=== PATIENT | female | born 1950 | race Caucasian/White ===

== ENCOUNTER 2016-06-24 08:00 | Outpatient (CLI) | payer MEDICARE, OTHER ==
[2015-04-23 06:06] VITALS: BMI 26.6
[~2016-06-24 08:00] MED LIST: COUMADIN3 MG PO; KEFLEX250 MG PO; KEFLEX500 MG PO; MULTI-DAY VITAM1 TAB PO; NORCO 10/325 TA1 TA1 PO; OXYBUTYNIN CHLOR5 MG PO; OXYCONTIN20 MG PO; PERCOCET 10/3251 TA1 PO
== END 2016-06-24 23:59 | disposition home or self-care (01) ==
LOC: D.MRI 08:00
DX: M47.816 Spondylosis without myelopathy or radiculopathy, lumbar region (principal); M54.2 Cervicalgia

== ENCOUNTER 2016-09-06 05:33 | Inpatient (IN) | payer MEDICARE, OTHER ==
[2016-09-04 14:11] LABS: BASOPHILS 0.3 % (0-2); EOSINOPHILS 0.9 % (0-7); HEMATOCRIT 39.3 % (36.0-48.0); HEMOGLOBIN 12.8 g/dL (12-16); IMMATURE GRANULOCYTES 0.2 % (0-5); LYMPHOCYTES 24.9 % (15-50); MCH 30.1 pg (26.0-34.0); MCHC 32.6 g/dL (31.0-37.0); MCV 92.5 fL (80.0-100.0); MEAN PLATELET VOLUME 10.1 fL (7.4-10.4); MONOCYTES 6.5 % (2-11); NEUTROPHILS 67.2 % (40-80); RBC 4.25 10x6/uL (4.00-5.40); RDW 13.6 % (11.5-14.5); WBC 6.6 10x3/uL (4.8-10.8)
[2016-09-04 14:12] LABS: PLATELET COUNT 225 10x3/uL (130-400)
[2016-09-04 14:27] LABS: APPEARANCE HAZY (CLEAR); BILIRUBIN NEGATIVE (NEGATIVE); CALC OSMOLALITY 277 mosm/kg (275-300); CALCIUM 8.9 mg/dL (8.5-10.1); CARBON DIOXIDE 29.1 mmol/L (21.0-32.0); CHLORIDE - SERUM 103 mmol/L (98-107); COLOR YELLOW (YELLOW); CREATININE - SERUM 0.7 mg/dL (0.6-1.3); GLUCOSE 95 mg/dL (74-106); GLUCOSE NEGATIVE (NEGATIVE); KETONE NEGATIVE (NEGATIVE); LEUKOCYTE ESTERASE 1+ (NEGATIVE); NITRITE NEGATIVE (NEGATIVE); POTASSIUM - SERUM 3.7 mmol/L (3.5-5.1); PROTEIN NEGATIVE (NEGATIVE); SODIUM 139 mmol/L (136-145); UREA NITROGEN 12 mg/dL (7-18); UROBILINOGEN NORMAL (NORMAL); eGFR NON AFRICAN AMERICAN 89 mL/min (90-120)
[2016-09-04 14:28] LABS: AMORPHOUS SEDIMENT >1+ /lpf (NONE SEEN); BACTERIA MODERATE /hpf (NONE SEEN); EPITHELIAL CELLS 0-5 /hpf (0-5); MUCUS <1+ /lpf (NONE SEEN); RED CELLS - URINE 0-5 /hpf (0-5)
[2016-09-06] VITALS (15 sets, daily range): BP systolic 126–156; BP diastolic 66–88; Ht 157.5 cm; Wt 69.1 kg
[~2016-09-06] VITALS: Ht 157.5 cm; Wt 69.1 kg
[2016-09-06] MEDS ORDERED: HYDROCODON-ACET15 ML PO (06:28)
[2016-09-06] MEDS ORDERED: ADIPEX-P37.5 MG PO (06:31)
--- NOTE | 2016-09-06 10:28 | HP ---
PATIENT: HITESH MARTINEZ MEDICAL RECORD: [id number] ACCOUNT: [id number] LOCATION:[facility] [place]- : 50 ADMISSION DATE: 09/06/16 HISTORY AND PHYSICAL EXAMINATION CHIEF COMPLAINT: Neck pain secondary to C5-6, C6-7 neural foraminal narrowing. HISTORY OF PRESENT ILLNESS: This is a pleasant white female who presented to our office with neck pain and she also complains of bilateral shoulder pain, it is worse in her left upper extremity. She describes the pain as sharp. It has progressively gotten worse and with modification of activity, it has not helped and she is taking meds. She also has low back pain, but neck pain is taking precedence today. PAST MEDICAL HISTORY: Significant for the above, total knee replacement times 2, and left and right shoulder scopes with an existing left shoulder disorder now. FAMILY HISTORY: Unknown. SOCIAL HISTORY: She is . FAMILY DOCTORS: Juanita Gregorio and Acosta Butler MD. ALLERGIES: PENICILLIN. CURRENT MEDICATIONS: Cephalexin, and oxycodone. PHYSICAL EXAMINATION: GENERAL: This is an alert, oriented female who is in no acute distress. HEENT: Normocephalic. Pupils are equal, reactive to light. CHEST: Clear bilaterally to auscultation. HEART: S1 and S2. ABDOMEN: Soft, bowel sounds present. EXTREMITIES: She has decreased range of motion of her left shoulder. With neck, she has pain with flexion and extension and rotation. IMPRESSION: C5-6, C6-7 neural foraminal narrowing. PLAN: C5 through C7 ACDF. The risk and benefits of surgery have been explained to her in detail. Risks include bleeding, failure to relieve symptoms, problems with anesthesia and . Time was allowed for questions and questions were answered. The patient wishes to proceed with surgery. TRANSINT:[id number] Voice Confirmation ID: [id number] DOCUMENT ID: [id number] Dictated By: CAITLYN ROBERTS I have interviewed/examined the above patient and agree with these documented findings. HISTORY AND PHYSICAL [id number] HITESH MARTINEZ MARTINA OWENS MD at 1028 CC: [id number] DICTATION DATE: 09/05/16 1250 IT HELP DESK TECHNICIAN: 09/05/16 1500 ADM IN [address] [place] [address]
--- NOTE | 2016-09-06 11:20 | NUR ---
REC'D PT FROM OR VIA BED, PT ORIENTATED X2. NECK INCISON OPEN TO AIR, CHARMAINE DRAIN WITH BLOODY DRAINAIGE COMPRESSED. LEFT HAND PIV WITH LR INFUSING AT 10ML/HR. SCD'S. NO FAMILY AT BEDSIDE. ASSESSMENT COMPLETETED, SEE FLOW SHEET. ROOM FREE OF CLUTTER, CALL LIGHT IN REACH, WILL CONTINUE TO MONITOR PT.
--- NOTE | 2016-09-06 11:56 | NUR ---
NOTIFIED CAITLYN ROBERTS APRN THAT PT WAS IN CVO1, "WE WILL SEE THEM IN THE MORNING."
--- NOTE | 2016-09-06 14:51 | NUR ---
09/06/2016 14:50 DCP: Discharge Planning DC order rec'd. Final Med Rec, instructions & orders faxed to [facility].
--- NOTE | 2016-09-06 15:00 | NUR ---
PT FAMILY AT THE BEDSIDE, ALL QUESTIONS ANSWERED, PT AMBULATED TO BATHROOM WITH SOFT COLLAR NECK BRACE ON, REASSESSMENT COMPLETED, SEE FLOW SHEET. ROOM FREE OF CLUTTER, CALL LIGHT IN REACH, WILL CONTINUE TO MONITOR PT.
--- NOTE | 2016-09-06 19:00 | NUR ---
PT AOX4, DENIES PAIN AT THIS TIME. PT REPOSITIONED IN BED WITH MINIMAL ASSIST. FRESH WATER TO BEDSIDE. LUNG SOUNDS CLEAR. S1S2 HEARD, PERIPHERAL PULSES PRESENT. NECK WITH CHARMAINE DRAIN, INCISION CLEAN AND DRY. NECK BRACE AT BEDSIDE. DENIES NEEDS AT THIS TIME. CALL LIGHT AND BEDSIDE TABLE WITHIN PT REACH. ROOM VISIBLE FROM NURSES STATION. CPOC.
--- NOTE | 2016-09-06 21:00 | NUR ---
PT RESTING WITH NON LABORED RESPIRATIONS. REPOSITIONED IN BED FOR COMFORT. VSS. NECK WITH CHARMAINE CDI, BLOODY DRAINAGE PRESENT. DENIES NEEDS AT THIS TIME. CALL LIGHT AND BEDSIDE TABLE WITHIN PT REACH. CPOC.
[2016-09-07] VITALS (9 sets, daily range): BP systolic 124–149; BP diastolic 68–87
--- NOTE | 2016-09-07 03:00 | NUR ---
REASSESSMENT COMPLETE, NO CHANGES AT THIS TIME. VSS, NO C/O PAIN. NECK WITH CHARMAINE CDI, BLOODY DRAINAGE. REPOSITIONS SELF INDEPENDENTLY. DENIES NEEDS AT THIS TIME. CALL LIGHT AND BEDSIDE TABLE WITHIN PT REACH. CPOC.
--- NOTE | 2016-09-07 05:00 | NUR ---
PT UP AND WALKING WITH STEADY GAIT. NO C/O PAIN AT THIS TIME. VSS. PARTIAL LINEN CHANGE COMPLETE. REPOSITIONED BACK IN BED. RESTING COMFORTABLY. DENIES FURTHER NEEDS AT THIS TIME. CALL LIGHT AND BEDSIDE TABLE WITHIN PT REACH. CPOC.
--- NOTE | 2016-09-07 06:58 | OP ---
PATIENT NAME: HITESH MARTINEZ MEDICAL RECORD: [id number] :50 LOCATION:[facility] ADMISSION DATE:09/06/16 SURGEON: MARTINA OWENS MD DATE OF OPERATION: 09/06/2016 PREOPERATIVE DIAGNOSIS: Left C5, C6 and C7 radiculopathy. POSTOPERATIVE DIAGNOSIS: Left C5, C6 and C7 radiculopathy. PROCEDURES PERFORMED: 1. Application of intervertebral biomechanical devices (Alphatec CIS novel cage at C4-5, C5-6, C6-7). 2. Anterior interbody arthrodesis with endplate preparation with curettes at C4-5, C5-6 and C6-7. 3. Anterior plate and bilateral vertebral body screw fixation from C4 to C7. 4. Anterior cervical discectomy with PLL resection and bilateral foraminotomies at C4-5, C5-6 and C6-7. 5. Use of intraoperative microscope with microdissection techniques. IMPLANTS: Alphatec anterior cervical set with a 51-mm Trestle Luxe plate and 8 mm CIS cage at C4-5, 7 mm cage at C5-6, 7 mm cage C6-7, 16-mm variable angle screws at C4, C5 and C6 bilaterally with 16-mm fixed angle screws at C7 bilaterally, use of Alphatec Neocore allograft. ESTIMATED BLOOD LOSS: 50 mL. SPECIMENS: None. COMPLICATIONS: None apparent. FINDINGS: No durotomies; SSEPs remained stable and at baseline throughout the procedure. COMPLICATIONS: None apparent. HISTORY OF PRESENT ILLNESS: Hitesh Martinez is a pleasant 65-year-old female who presented with progressive intractable left upper extremity pain consistent with a cervical radiculopathy. Imaging is consistent with [id number] foraminal stenosis, left greater than right at C4-5, C5-6 and C6-7. I had an extensive discussion with the patient regarding her presentation, imaging findings and risks, benefits and options of continued conservative therapy versus operative intervention in the form of anterior cervical discectomy and fusion. She ultimately chose undergo anterior cervical discectomy and fusion and the risks and benefits were discussed with her in detail prior to surgery. DESCRIPTION OF PROCEDURE: The patient was identified by anesthesia team, transported to operative theater and gently transferred in a supine position on the operative bed where general endotracheal anesthesia commenced and all appropriate lines and tubes were placed. A gel roll was placed underneath the shoulder and her head was placed in extension. Anterior neck was prepped and draped in the usual fashion. A timeout was performed and agreed to by those present. The patient did receive 10 mg IV dexamethasone and Ancef and gentamicin prior to the start of surgery. Using lateral fluoroscopy, incision was marked and infiltrated with lidocaine 1% with epinephrine. A 10 blade was used to make the skin incision. Bovie electrocautery was used to transect the OPERATIVE REPORT [id number] HITESH MARTINEZ platysma. Extensive rostral and caudal subplatysmal dissection was carried out and the plane between the tracheoesophageal bundle medially and the carotid bundle laterally was identified and developed with blunt dissection. The prevertebral fascia was opened with Metzenbaum scissors and the prevertebral space was again bluntly dissected. A snap was placed at C5-6 disc space and confirmed to be the appropriate level on lateral fluoroscopy. Using low power Bovie electrocautery, the relevant portions of the C4, C5, C6 and C7 vertebral bodies were exposed and cleaned free of soft tissue and the longus colli adjacent to the C4-5, C5-6 and C6-7 disc spaces were elevated. Self-retaining retractors were lined up over the C6-7 disc space and Kyles Ford pins were placed at the C6 and C7 vertebral bodies. A square cut was made in the disc and initial discectomy was performed with pituitary rongeurs. Microscope was brought in the field and used for the remainder of the case. Using a combination of a high-speed matchstick drill, curettes, simmons elevator and Kerrison rongeurs, the discectomy at C6-7 was carried out including a bilateral PLL takedown on bilateral foraminotomies. Foramina were opened at the conclusion of the decompression as demonstrated by palpation with a blunt nerve hook. A small amount of epidural hemorrhage was controlled with Surgiflo hemostatic matrix, which was subsequently rinsed away. Ultimately, a 7-mm trial was found to be appropriate and a 7-mm graft was packed with Neocore allograft and inserted in the disc space under lateral fluoroscopy to the appropriate depth. The C7 Kyles Ford pin was removed and the defects filled with bone wax. This pin was placed in the C5 vertebral body after the self-retaining retractors were moved up to the C5-6 disc space. The C5-6 discectomy proceeded in the exact same sequence as the C6-7. The bilateral foramina were decompressed. Again, a small amount of epidural hemorrhage was controlled with Surgiflo hemostatic matrix. This was rinsed away, no further hemorrhage was appreciated. A 7-mm trial was found to be appropriate and a 7-mm graft packed with Neocore allograft was then inserted to the appropriate depth under lateral fluoroscopy. The C6 Kyles Ford pin was then removed and the defect again filled with bone wax. After the self-retaining retractors were moved over to the C4-5 disc space, the Kyles Ford pin was placed in the C4 vertebral body. The C4-5 discectomy proceeded in the exact same sequence as the prior two. The bilateral foramina were decompressed and the PLL was taken down as well. A small amount of epidural hemorrhage, again, was controlled with FloSeal hemostatic matrix, was subsequently rinsed away and no further hemorrhage appreciated. Ultimately, an 8-mm trial was found to be appropriate and was packed with Neocore allograft and inserted under lateral fluoroscopy to the appropriate depth. Kyles Ford pins were removed and the defects were filled with bone wax and there was no significant hemorrhage from the Kyles Ford pin sites. A 51-mm Trestle Luxe plate was then laid over the C4 to C7 levels and confirmed under lateral fluoroscopy the appropriate length. Starting at the C5 vertebral body, the 12-mm drill guide was used to pre-drill holes and 16-mm variable angle screws were inserted. The process was repeated for C4 and C6. The process was then repeated with fixed angled screws, 16 mm length at C7. Lateral fluoroscopy was used to confirm the screw position and placement and the screws were confirmed to be the final, tightened with the locking mechanism engaged at all 4 levels. Copious amount of irrigation was then used. There was no significant hemorrhage prior to closure. A 10-Uzbek round drain was tunneled away from the incision, laid in the prevertebral space overlying the plate. The area was again inspected for hemorrhage of which there was none. The drain was sutured into place with 3-0 Vicryl suture and platysma was reapproximated with inverted interrupted 3-0 Vicryl sutures. The skin was closed with a running 4-0 subcuticular Monocryl. The incision was cleaned and dressed with wet-to-dry dressing and Dermabond skin glue was applied. All sponge and needle counts were correct times 2 at the end of the case. The SSEPs OPERATIVE REPORT [id number] HITESH MARTINEZ remained stable and baseline throughout the procedure. Final x-rays confirmed appropriate implant position prior to closure. There were no apparent complications. I discussed with the patient tour leader in the waiting room immediately regarding the course of the surgery and the plan for postoperative care and all of his questions were answered. TRANSINT:[id number] Voice Confirmation ID: [id number] DOCUMENT ID: [id number] MARTINA OWENS MD at 0658 CC: [id number] DICTATION DATE: 09/06/16 1053 COMMERCIAL REVIEW APPRAISER: 09/06/[address] [facility] [address] [place] [id number]
--- NOTE | 2016-09-07 07:00 | NUR ---
PT REPORT REC'D, PT CARE ASSUMED, PT AAOX4 SITTING UP IN BED. C/O PAIN RATED "8/10 IN NECK INCISION", PAIN MEDS TO BE GIVEN. NECK CHARMAINE DRAIN COMPRESSED WITH BLOODY DRAINAGE. NECK INCISION CLEAN AND DRY, NO DRAINAGE NOTED. LEFT HAND PIV S/L'ED, DRESSING CDI. BRUISES NOTED TO BILAT LEGS. SCD'S. SHIFT ASSESSMENT COMPLETED, SEE FLOW SHEET. ROOM FREE OF CLUTTER, CALL LIGHT IN REACH, WILL CONTINUE TO MONITOR PT.
[2016-09-07] MEDS ORDERED: VALIUM 2 MG TAB2 MG PO (07:05)
[2016-09-07] MEDS ORDERED: ROBAXIN-750750 MG PO (07:05)
--- NOTE | 2016-09-07 07:05 | NUR ---
DR. OWENS AT THE BEDSIDE
[2016-09-07] MEDS ORDERED: HYDROCODON-ACE1 EAC7 PO (07:06)
--- NOTE | 2016-09-07 07:39 | NUR ---
D/C'ED CHARMAINE DRAIN, 4X4'S APPLIED, PRESSURE APPLIED, TEGADERM APPLIED, WILL CONTINUE TO MONITOR FOR BLEEDING.
--- NOTE | 2016-09-07 08:00 | NUR ---
PT SITTING UP IN BED, NO C/O PAIN, D/C PAPER WORK SIGNED, RX GIVEN FROM DR. OWENS. PT VERBALIZES UNDERSTANDING FOR FOLLOW UP CARE. AWAITING PTS 'S ARRIVAL.
--- NOTE | 2016-09-07 08:26 | NUR ---
DC'ED LEFT HAND PIV, TIP INTACT, 4X4'S APPLIED, PRESSURE APPLIED, BANDAID APPLIED, WILL CONTINUE TO MONITOR FOR BLEEDING
--- NOTE | 2016-09-07 08:30 | NUR ---
WHEELED PT OUT TO PTS 'S VEHICLE, PTS DRIVING. PT VERBALIZES UNDERSTANDING FOR FOLLOW UP CARE.
== END 2016-09-07 08:30 | disposition home health service (06) | DRG 30 ==
LOC: D.SDCHOLD 05:33 → D.ICU 10:37 → D.CVICU 10:56
PROVIDERS: ADMIT Neurological Surgery
PROC: 0RB30ZZ Excision of Cervical Vertebral Disc, Open Approach (ICD-10-PCS; 2016-09-06)
PROC: 0RG20A1 (ICD-10-PCS; principal; 2016-09-06 07:30)
DX: M54.12 Radiculopathy, cervical region (principal)

== ENCOUNTER → 2016-10-13 09:33 | Outpatient (CLI) | payer MEDICARE, OTHER ==
[2016-09-06 11:31] VITALS: BMI 27.8
[~2016-10-13 09:33] MED LIST changes: +ADIPEX-P37.5 MG PO; +HYDROCODON-ACE1 EAC7 PO; +HYDROCODON-ACET15 ML PO; +ROBAXIN-750750 MG PO; +VALIUM 2 MG TAB2 MG PO
== END | disposition home or self-care (01) ==
LOC: D.RAD 09:33
DX: Z48.811 Encounter for surgical aftercare following surgery on the nervous system (principal)

== ENCOUNTER → 2017-04-25 14:41 | Outpatient (CLI) | payer MEDICARE, OTHER ==
[2016-09-06 11:31] VITALS: BMI 27.8
== END | disposition home or self-care (01) ==
LOC: D.MAMMO 11:15
DX: Z12.31 Encounter for screening mammogram for malignant neoplasm of breast (principal)

== ENCOUNTER → 2017-12-28 13:54 | Outpatient (CLI) | payer MEDICARE, OTHER ==
[2016-09-06 11:31] VITALS: BMI 27.8
== END | disposition home or self-care (01) ==
LOC: D.MRI 13:54
DX: M25.512 Pain in left shoulder (principal)

== ENCOUNTER 2018-06-28 09:00 | Outpatient (CLI) | payer MEDICARE, OTHER ==
[2016-09-06 11:31] VITALS: BMI 27.8
== END 2018-06-28 10:00 | disposition home or self-care (01) ==
LOC: D.MAMMO 09:00
PROVIDERS: ATTEND Family Medicine
DX: Z12.31 Encounter for screening mammogram for malignant neoplasm of breast (principal)